=== PATIENT | female | born 1980 | race Hispanic/Latino ===

== ENCOUNTER 2020-05-29 16:01 | Emergency (ER) | payer BC, SELFPAY ==
[2020-05-29 16:09] VITALS: BP 121/83; PULSE 105; RESP 18; TEMP 37.4; O2SAT 97
--- NOTE | 2020-05-29 16:12 | ED.FEVER ---
HPI - Fever General Chief Complaint: Fever <Man Graham PA-C - Last Filed: 05/29/20 17:10> Stated Complaint: fever,cough,rosario <KORI Harley Last Filed: 05/29/20 17:10> Time Seen by Provider: 05/29/20 16:05 <Man Graham PA-C - Last Filed: 05/29/20 17:10> Source: patient <KORI Harley Last Filed: 05/29/20 17:10> Mode of arrival: ambulatory <KORI Harley Last Filed: 05/29/20 17:10> Limitations: no limitations <KORI Harlye Last Filed: 05/29/20 17:10> History of Present Illness HPI Narrative: Patient is a 39-year-old female who presents to emergency department for evaluation of upper respiratory symptoms over the last 2 days patient notes an individual at work positive for COVID-19 patient notes fever chills body aches productive cough of green phlegm over the last 2 days. Patient on arrival denies vomiting diarrhea immunocompromise. Patient has not taken anything for her symptoms. Patient on arrival in the room in no distress <Man Graham PA-C - Last Filed: 05/29/20 17:10> Related Data Allergies/Adverse Reactions: Allergies Allergy/AdvReac Type Severity Reaction Status Date / Time No Known Allergies Allergy Mild Verified 05/29/20 16:13 <Man Graham PA-C - Last Filed: 05/29/20 17:10> Review of Systems Review of Systems: All systems reviewed & are unremarkable except as noted in HPI and below <Man Graham PA-C - Last Filed: 05/29/20 17:10> PMFSH Social History Social History: Social History Smoking status: Light tobacco smoker Second hand tobacco smoke exposure: Yes Alcohol intake: current Gender identity (if verbalized by the patient): Female <KORI Harley Last Filed: 05/29/20 17:10> Exam Narrative: Exam Narrative: GENERAL: Well-appearing, well-nourished, and in no acute distress. HEAD: Normocephalic, atraumatic. EYES: PERRLA and EOMI. ENT: Nares clear, no rhinorrhea or epistaxis. Mucous membranes moist. NECK: Supple. No adenopathy or masses. CHEST: Clear to auscultation. No respiratory distress. No wheezes rales or rhonchi HEART: Regular rate and rhythm. No murmur heard. EXTREMITIES: Normal range of motion. No edema. SKIN: Warm, dry, no rash. NEURO: No focal deficits. Alert and oriented x3. Cranial nerves II through XII grossly intact. PSYCH: Normal mood and affect. <Man Graham PA-C - Last Filed: 05/29/20 17:10> Course Vital Signs Vital signs: Vital Signs Temperature 37.4 C 05/29/20 16:09 Pulse Rate 105 H 05/29/20 16:09 Respiratory Rate 18 05/29/20 16:09 Blood Pressure 121/83 05/29/20 16:09 Pulse Oximetry 97 05/29/20 16:09 Temperature 37.4 C 05/29/20 16:09 Pulse Rate 105 H 05/29/20 16:09 Respiratory Rate 18 05/29/20 16:09 Blood Pressure 121/83 05/29/20 16:09 Pulse Oximetry 97 05/29/20 16:09 <Man Graham PA-C - Last Filed: 05/29/20 17:10> Vital Signs Temperature 37.4 C 05/29/20 16:09 Pulse Rate 105 H 05/29/20 16:09 Respiratory Rate 18 05/29/20 16:09 Blood Pressure 121/83 05/29/20 16:09 Pulse Oximetry 97 05/29/20 16:09 Temperature 37.4 C 05/29/20 16:09 Pulse Rate 105 H 05/29/20 16:09 Respiratory Rate 18 05/29/20 16:09 Blood Pressure 121/83 05/29/20 16:09 Pulse Oximetry 97 05/29/20 16:09 <Lissy Doe MD - Last Filed: 05/29/20 17:38> MDM - Fever MDM Narrative Medical decision making narrative: Patient in the room in no distress felt appropriate for discharge home advised to self quarantine until COVID testing is resulted and approved by primary care to return to work provided with reasons to return afebrile nontoxic-appearing without any difficulty with breathing or hypoxemia <Man Graham PA-C - Last Filed: 05/29/20 17:10> Lab Data Labs: Lab Results 05/29/20 Ra
[2020-05-30 20:25] LABS: SARS-CoV-2 RNA PCR Positive
== END 2020-05-29 17:27 | disposition home or self-care (01) ==
PROVIDERS: Emergency Medicine Emergency Medical Services; Emergency Provider Emergency Medicine; PCP Family Medicine
DX: U07.1 COVID-19 (principal); F17.200 Nicotine dependence, unspecified, uncomplicated
CPT/HCPCS: 87081; 87635; 87880; 99283; C9803; U0003